=== PATIENT | female | born 1955 | race Caucasian/White ===

== ENCOUNTER → 2018-04-12 | Outpatient (CLI) | payer MEDICARE ==
--- NOTE | 2018-04-13 13:51 | CT ---
EXAMINATION TYPE: CT chest wo con DATE OF EXAM: 04/12/2018 COMPARISON: 11/05/2009 HISTORY: cough, SOB CT DLP: 814 mGycm. Automated Exposure Control for Dose Reduction was Utilized. TECHNIQUE: CT scan of the thorax is performed without IV contrast. FINDINGS: LUNGS: Is minimal bibasilar subsegmental dependent atelectasis and lingular subsegmental atelectasis. The lungs are grossly clear, there is no concerning parenchymal mass or nodule identified. There i s no pleural effusion or pneumothorax seen. The tracheobronchial tree is patent. MEDIASTINUM: Lack of IV contrast is noted to limit evaluation for mediastinal and especially hilar ad enopathy. There are no definitive greater than 1 cm hilar or mediastinal lymph nodes. No cardiomega ly or pericardial effusion is seen. Mild three-vessel coronary calcifications are seen. Ascending tho racic aorta is within normal limits measuring 3.5 cm. Main pulmonary artery is upper limits of size a lthough nonenlarged. OTHER: Postsurgical changes are noted at the gastroesophageal junction. Liver is diffusely hypoattenu ated compatible with hepatic steatosis overall appearing mild in degree. Mild multilevel degenerative changes of the spine are noted. IMPRESSION: Lingular subsegmental atelectasis and other scattered areas of subsegmental atelectasis. No focal consolidation to suggest pneumonia. No pulmonary mass. No findings suggests interstitial juan carlos g disease.
== END ==
LOC: RADCTMAIN 16:38
PROVIDERS: ATTEND Internal Medicine Pulmonary Disease
DX: J98.11 Atelectasis (principal)
CPT/HCPCS: 71250

== ENCOUNTER → 2019-08-05 | Outpatient (CLI) | payer MEDICARE ==
--- NOTE | 2019-08-05 16:14 | XR ---
EXAMINATION TYPE: XR chest 2V DATE OF EXAM: 08/05/2019 COMPARISON: Prior chest x-ray 01/24/2014 HISTORY: Shortness of breath and chest pain, hypertension TECHNIQUE: Frontal and lateral views of the chest are obtained. FINDINGS: There is no focal air space opacity, pleural effusion, or pneumothorax seen. The cardiac silhouette size is within normal limits. There are prominent lung volumes which can be seen with TRANSONIC ENGINEER D. The osseous structures are intact. IMPRESSION: No acute cardiopulmonary process.
[2019-08-05 17:16] LABS: Basophils % (A) 0 %; Eosinophils # (A) 0.4 k/uL (0-0.7); Eosinophils % (A) 4 %; HCT 36.7 % (34.0-46.0); HGB 12.3 gm/dL (11.4-16.0); Lymphocytes # (A) 2.1 k/uL (1.0-4.8); Lymphocytes % (A) 22 %; MCH 29.2 pg (25.0-35.0); MCHC 33.5 g/dL (31.0-37.0); MCV 87.1 fL (80.0-100.0); Mean Platelet Volume 8.4; Monocytes # (A) 0.6 k/uL (0-1.0); Monocytes % (A) 6 %; Neutrophils # (A) 6.4 k/uL (1.3-7.7); Neutrophils % (A) 66 %; Platelet Count 281 k/uL (150-450); RBC 4.21 m/uL (3.80-5.40); RDW 13.6 % (11.5-15.5); WBC 9.6 k/uL (3.8-10.6)
[2019-08-05 23:40] LABS: African American GFR (CKD) 54.5 (60.0-200.0); Albumin 4.5 g/dL (3.80-4.90); Albumin/Globulin Ratio 2.05 (1.60-3.17); Anion Gap 11.8 mmol/L (4.00-12.00); Calcium 9.7 mg/dL (8.7-10.3); Carbon Dioxide 31.2 mmol/L (21.6-31.8); Globulin 2.2 g/dL (1.6-3.3); Non-African American GFR(CKD) 47.1 (60.0-200.0); Potassium 3.6 mmol/L (3.5-5.5); Total Bilirubin 0.4 mg/dL (0.3-1.2); Total Protein 6.7 g/dL (6.2-8.2)
[2019-08-05 23:48] LABS: T4, Free (Free Thyroxine) 1.1 ng/dL (0.80-1.80)
== END | disposition home or self-care (01) ==
LOC: LABWHC1 15:19
PROVIDERS: ATTEND Internal Medicine Cardiovascular Disease
DX: I10 Essential (primary) hypertension (principal); R06.02 Shortness of breath; R07.9 Chest pain, unspecified
CPT/HCPCS: 36415; 71046; 80053; 83880; 84439; 84443; 85025

== ENCOUNTER → 2020-04-09 | Outpatient (CLI) | payer MEDICARE ==
[2020-04-09 15:28] LABS: Basophils # (A) 0.1 k/uL (0-0.2); Basophils % (A) 1 %; Eosinophils # (A) 0.3 k/uL (0-0.7); Eosinophils % (A) 4 %; HCT 38.3 % (34.0-46.0); HGB 13.3 gm/dL (11.4-16.0); Lymphocytes # (A) 1.8 k/uL (1.0-4.8); Lymphocytes % (A) 20 %; MCH 30.1 pg (25.0-35.0); MCHC 34.6 g/dL (31.0-37.0); MCV 86.9 fL (80.0-100.0); Mean Platelet Volume 7.5; Monocytes # (A) 0.4 k/uL (0-1.0); Monocytes % (A) 4 %; Neutrophils # (A) 6.4 k/uL (1.3-7.7); Neutrophils % (A) 70 %; Platelet Count 302 k/uL (150-450); RDW 13.6 % (11.5-15.5); WBC 9.1 k/uL (3.8-10.6)
[2020-04-10 01:49] LABS: C Reactive Protein 3.6 mg/dL (0.0-0.8); Uric Acid 9.7 mg/dL (2.9-7.7)
[2020-04-10 05:37] LABS: Erythrocyte Sedimentation Rate 64 mm/Hr (0-30)
== END | disposition home or self-care (01) ==
LOC: LABWHC1 14:44
PROVIDERS: ATTEND Podiatrist Foot & Ankle Surgery
DX: M10.9 Gout, unspecified (principal); M19.90 Unspecified osteoarthritis, unspecified site; B99.9 Unspecified infectious disease
CPT/HCPCS: 36415; 84550; 85025; 85652; 86038; 86039; 86140; 86431

== ENCOUNTER 2020-09-03 18:22 | Emergency (ER) | payer MEDICARE ==
[2020-09-03] MEDS ORDERED: SODIUM CHLORIDE 0.9% 500 ML 500 ML IV STA (18:52)
[2020-09-03] MEDS ORDERED: ALBUTEROL HFA INHALER INHALATION STA (18:52)
[2020-09-03] MEDS ORDERED: ACETAMINOPHEN TAB 325 MG TAB PO STA (19:05)
--- NOTE | 2020-09-03 19:05 | XR ---
EXAMINATION TYPE: XR chest 2V DATE OF EXAM: 09/03/2020 COMPARISON: 08/05/2019 INDICATION: TIPS and short of breath TECHNIQUE: Frontal and lateral views of the chest are obtained. FINDINGS: The heart size is normal. The pulmonary vasculature is normal. The lungs are clear. IMPRESSION: 1. No acute pulmonary process.
[2020-09-03 19:12] LABS: Basophils # (A) 0.1 k/uL (0-0.2); Basophils % (A) 1 %; Eosinophils # (A) 0.1 k/uL (0-0.7); Eosinophils % (A) 1 %; HCT 35.6 % (34.0-46.0); HGB 12.6 gm/dL (11.4-16.0); Lymphocytes # (A) 0.7 k/uL (1.0-4.8); Lymphocytes % (A) 10 %; MCH 30.7 pg (25.0-35.0); MCHC 35.5 g/dL (31.0-37.0); MCV 86.5 fL (80.0-100.0); Mean Platelet Volume 7.6; Monocytes # (A) 0.4 k/uL (0-1.0); Monocytes % (A) 6 %; Neutrophils # (A) 5.6 k/uL (1.3-7.7); Neutrophils % (A) 81 %; Platelet Count 226 k/uL (150-450); RBC 4.11 m/uL (3.80-5.40); RDW 13.1 % (11.5-15.5); WBC 6.9 k/uL (3.8-10.6)
[2020-09-03] MEDS: MAGNESIUM SULFATE-D5W PMX 1 GM in DEXTROSE/WATER 1 100ML.BAG IVPB SCH ×2 (19:13→20:20)
[2020-09-03 19:23] LABS: Calcium 9.3 mg/dL (8.4-10.2); Magnesium 1.5 mg/dL (1.6-2.3); Potassium 3.5 mmol/L (3.5-5.1); Total Bilirubin 0.7 mg/dL (0.2-1.3); Total Protein 6.7 g/dL (6.3-8.2)
[2020-09-03 19:26] LABS: Partial Thromboplastin Time 23.3 sec (22.0-30.0)
--- NOTE | 2020-09-03 20:14 | ED ---
SOB HPI - General Chief Complaint: Shortness of Breath Stated Complaint: ABBY Time Seen by Provider: 09/03/20 18:34 Source: EMS Mode of arrival: EMS Limitations: physical limitation - History of Present Illness Initial Comments: Patient presents with shortness of breath. She has a history of asthma. She has a cough. She has no nausea or vomiting. She has no chest pain or pressure. She has no weakness, lightheadedness or dizziness. She is unaware of sick contacts. She has not traveled anywhere. She has not taken any medication for her symptoms. She wasn't doing anything when she began to feel this way. - Related Data Home Medications Medication Instructions Recorded Confirmed Atenolol 50 mg PO BID 11/03/13 05/17/17 Montelukast [Singulair] 10 mg PO HS 11/03/13 05/17/17 Chlorthalidone [Hygroton] 25 mg PO BID 04/06/15 05/17/17 amLODIPine [Norvasc] 5 mg PO QAM 04/06/15 05/17/17 Cetirizine HCl [Zyrtec] 10 mg PO DAILY 05/17/17 05/17/17 Ibuprofen [Motrin] 200 mg PO Q6HR PRN 05/17/17 05/17/17 Previous Rx's Medication Instructions Recorded Cephalexin [Keflex] 500 mg PO Q6HR #40 cap 05/19/17 Allergies Allergy/AdvReac Type Severity Reaction Status Date / Time iodine Allergy Unknown Rash/Hives Verified 09/03/20 18:34 latex Allergy Unknown Unknown Verified 09/03/20 18:34 nickel [Nickel] Allergy Unknown Rash/Hives Verified 09/03/20 18:34 adhesive AdvReac Unknown Rash/Hives Verified 09/03/20 18:34 Review of Systems ROS Statement: Those systems with pertinent positive or pertinent negative responses have been documented in the HPI. ROS Other: All systems not noted in ROS Statement are negative. Past Medical History Past Medical History: Asthma, Eye Disorder, Hypertension, Osteoarthritis (OA), Pneumonia, Rheumatoid Arthritis (RA) Additional Past Medical History / Comment(s): Hiatal hernia, hx of narrow angle eye disorder(laser sx done), minimal glaucoma.past gout, ddd,seasonal allergies,past sleep apnea,"dry flaky skin". History of Any Multi-Drug Resistant Organisms: None Reported Past Surgical History: Breast Surgery, Heart Catheterization, Hysterectomy Additional Past Surgical History / Comment(s): Eye surgery for narrow angle eye disorder.BREAST REDUCTION,PARTIAL HYSTERECTOMY, HAMMER TOE. SINUS SURGERY.laser eye sx, lap meme fundoplication. Past Anesthesia/Blood Transfusion Reactions: Motion Sickness Additional Past Anesthesia/Blood Transfusion Reaction / Comment(s): Claustrophobia. Past Psychological History: ADD/ADHD, Anxiety, Depression Smoking Status: Former smoker Past Alcohol Use History: None Reported Past Drug Use History: None Reported - Past Family History Mother Family Medical History: Unable to Obtain Additional Family Medical History / Comment(s): Adopted. General Exam Limitations: physical limitation General appearance: alert, in no apparent distress Head exam: Present: atraumatic, normocephalic, normal inspection Eye exam: Present: normal appearance, PERRL, EOMI. Absent: scleral icterus, conjunctival injection, periorbital swelling ENT exam: Present: normal exam, mucous membranes moist Neck exam: Present: normal inspection. Absent: tenderness, meningismus, l ymphadenopathy Respiratory exam: Present: wheezes. Absent: respiratory distress, rales, rhonchi, stridor Cardiovascular Exam: Present: regular rate, normal rhythm, normal heart sounds. Absent: systolic murmur, diastolic murmur, rubs, gallop, clicks GI/Abdominal exam: Present: soft, normal bowel sounds. Absent: distended, tenderness, guarding, rebound, rigid Extremities exam: Present: normal inspection, full ROM, normal capillary refill. Absent: tenderness, pedal edema, joint swelling, calf tenderness Back exam: Present: normal inspection Neurological exam: Present: alert, oriented X3, CN II-XII intact Psychiatric exam: Present: normal affect, normal mood Skin exam: Present: warm, dry, intact, normal color. Absent: rash Course Vital Signs 09/03/20 18:31 Temperature 102 F H Pulse Rate 80 Respiratory 22 Rate Blood Pressure 140/81 O2 Sat by Pulse 96 Oximetry Medical Decision Making - Medical Decision Making Patient presents with shortness of breath. She has asthma. She was given steroids prior to arrival. She is given breathing treatment. She is given IV magnesium. A Covid test is positive. She is treated with IV medication for this. Patient is feeling better and is stable for discharge. - Lab Data Result diagrams: 09/03/20 18:54 09/03/20 18:54 Lab Results 09/03/20 09/03/20 09/03/20 Range/Units 18:50 18:54 18:54 WBC 6.9 (3.8-10.6) k/uL RBC 4.11 (3.80-5.40) m/uL Hgb 12.6 (11.4-16.0) gm/dL Hct 35.6 (34.0-46.0) % MCV 86.5 (80.0-100.0) fL MCH 30.7 (25.0-35.0) pg MCHC 35.5 (31.0-37.0) g/dL RDW 13.1 (11.5-15.5) % Plt Count 226 (150-450) k/uL MPV 7.6 Neutrophils % 81 % Lymphocytes % 10 % Monocytes % 6 % Eosinophils % 1 % Basophils % 1 % Neutrophils # 5.6 (1.3-7.7) k/uL Lymphocytes # 0.7 L (1.0-4.8) k/uL Monocytes # 0.4 (0-1.0) k/uL Eosinophils # 0.1 (0-0.7) k/uL Basophils # 0.1 (0-0.2) k/uL PT 11.0 (9.0-12.0) sec INR 1.0 (<1.2) APTT 23.3 (22.0-30.0) sec Sodium (137-145) mmol/L Potassium (3.5-5.1) mmol/L Chloride (98-107) mmol/L Carbon Dioxide (22-30) mmol/L Anion Gap mmol/L BUN (7-17) mg/dL Creatinine (0.52-1.04) mg/dL Est GFR (CKD-EPI)AfAm (>60 ml/min/1.73 sqM) Est GFR (CKD-EPI)NonAf (>60 ml/min/1.73 sqM) Glucose (74-99) mg/dL Calcium (8.4-10.2) mg/dL Magnesium (1.6-2.3) mg/dL Total Bilirubin (0.2-1.3) mg/dL AST (14-36) U/L ALT (4-34) U/L Alkaline Phosphatase (38-126) U/L Troponin I (0.000-0.034) ng/mL NT-Pro-B Natriuret Pep pg/mL Total Protein (6.3-8.2) g/dL Albumin (3.5-5.0) g/dL Coronavirus (PCR) Detected A (Not Detectd) Influenza Type A RNA (Not Detectd) Influenza Type B (PCR) (Not Detectd) 09/03/20 09/03/20 09/03/20 Range/Units 18:54 18:54 18:54 WBC (3.8-10.6) k/uL RBC (3.80-5.40) m/uL Hgb (11.4-16.0) gm/dL Hct (34.0-46.0) % MCV (80.0-100.0) fL MCH (25.0-35.0) pg MCHC (31.0-37.0) g/dL RDW (11.5-15.5) % Plt Count (150-450) k/uL MPV Neutrophils % % Lymphocytes % % Monocytes % % Eosinophils % % Basophils % % Neutrophils # (1.3-7.7) k/uL Lymphocytes # (1.0-4.8) k/uL Monocytes # (0-1.0) k/uL Eosinophils # (0-0.7) k/uL Basophils # (0-0.2) k/uL PT (9.0-12.0) sec INR (<1.2) APTT (22.0-30.0) sec Sodium 134 L (137-145) mmol/L Potassium 3.5 (3.5-5.1) mmol/L Chloride 95 L (98-107) mmol/L Carbon Dioxide 28 (22-30) mmol/L Anion Gap 11 mmol/L BUN 15 (7-17) mg/dL Creatinine 1.10 H (0.52-1.04) mg/dL Est GFR (CKD-EPI)AfAm 60 (>60 ml/min/1.73 sqM) Est GFR (CKD-EPI)NonAf 52 (>60 ml/min/1.73 sqM) Glucose 134 H (74-99) mg/dL Calcium 9.3 (8.4-10.2) mg/dL Magnesium 1.5 L (1.6-2.3) mg/dL Total Bilirubin 0.7 (0.2-1.3) mg/dL AST 213 H (14-36) U/L ALT 98 H (4-34) U/L Alkaline Phosphatase 113 (38-126) U/L Troponin I <0.012 (0.000-0.034) ng/mL NT-Pro-B Natriuret Pep 397 pg/mL Total Protein 6.7 (6.3-8.2) g/dL Albumin 4.0 (3.5-5.0) g/dL Coronavirus (PCR) (Not Detectd) Influenza Type A RNA (Not Detectd) Influenza Type B (PCR) (Not Detectd) 09/03/20 Range/Units 19:18 WBC (3.8-10.6) k/uL RBC (3.80-5.40) m/uL Hgb (11.4-16.0) gm/dL Hct (34.0-46.0) % MCV (80.0-100.0) fL MCH (25.0-35.0) pg MCHC (31.0-37.0) g/dL RDW (11.5-15.5) % Plt Count (150-450) k/uL MPV Neutrophils % % Lymphocytes % % Monocytes % % Eosinophils % % Basophils % % Neutrophils # (1.3-7.7) k/uL Lymphocytes # (1.0-4.8) k/uL Monocytes # (0-1.0) k/uL Eosinophils # (0-0.7) k/uL Basophils # (0-0.2) k/uL PT (9.0-12.0) sec INR (<1.2) APTT (22.0-30.0) sec Sodium (137-145) mmol/L Potassium (3.5-5.1) mmol/L Chloride (98-107) mmol/L Carbon Dioxide (22-30) mmol/L Anion Gap mmol/L BUN (7-17) mg/dL Creatinine (0.52-1.04) mg/dL Est GFR (CKD-EPI)AfAm (>60 ml/min/1.73 sqM) Est GFR (CKD-EPI)NonAf (>60 ml/min/1.73 sqM) Glucose (74-99) mg/dL Calcium (8.4-10.2) mg/dL Magnesium (1.6-2.3) mg/dL Total Bilirubin (0.2-1.3) mg/dL AST (14-36) U/L ALT (4-34) U/L Alkaline Phosphatase (38-126) U/L Troponin I (0.000-0.034) ng/mL NT-Pro-B Natriuret Pep pg/mL Total Protein (6.3-8.2) g/dL Albumin (3.5-5.0) g/dL Coronavirus (PCR) (Not Detectd) Influenza Type A RNA Not Detected (Not Detectd) Influenza Type B (PCR) Not Detected (Not Detectd) 09/03/20 20:12 Twelve-lead EKG shows ventricular rate 81 bpm, normal NC interval, no ST elevation or depression, no change from prior EKG, interpreted by me as normal sinus rhythm. Disposition Clinical Impression: COVID-19 Disposition: HOME SELF-CARE Condition: Good Instructions (If sedation given, give patient instructions): Coronavirus Dis ease 2019 (COVID-19) Is patient prescribed a controlled substance at d/c from ED?: No Referrals: Renay Lopez MD [Primary Care Provider] - 1-2 days
[2020-09-03] MEDS ORDERED: BAMLANIVIMAB (EUA) 700 MG, ETESEVIMAB (EUA) 1,400 MG in SODIUM CHLORIDE 0.9% 50 ML IVPB ONE (21:00)
[2020-09-03] MEDS ORDERED: SODIUM CHLORIDE 0.9% 50 ML IVPB ONE (21:30)
[2020-09-03 22:52] VITALS: BP 126/65; PULSE 73; RESP 18; TEMP 99.1
== END 2020-09-03 22:45 | disposition home or self-care (01) ==
LOC: EC 18:22
DX: U07.1 COVID-19 (principal); J45.909 Unspecified asthma, uncomplicated; I10 Essential (primary) hypertension; M19.90 Unspecified osteoarthritis, unspecified site; M06.9 Rheumatoid arthritis, unspecified; F41.9 Anxiety disorder, unspecified; Z79.899 Other long term (current) drug therapy; Z91.048 Other nonmedicinal substance allergy status; Z91.040 Latex allergy status; Z87.891 Personal history of nicotine dependence
CPT/HCPCS: 36415; 94640; 93005; 83880; 80053; 83735; 84484; 85025; 85610; 85730; 87502; 87635; 71046; 99285; 96365; 96367; 96366; J3475; Q0245

== ENCOUNTER → 2021-08-04 | Outpatient (CLI) | payer MEDICARE ==
--- NOTE | 2021-08-04 08:28 | XR ---
Right foot HISTORY: M84.371A 3 views the right foot Bone mineralization is reduced which could limit evaluation. Degenerative changes present at the meta tarsophalangeal joint of the first digit. There is some associated soft tissue swelling. Alignment is maintained. No evident fracture or dislocation. There is a plantar calcaneal spur. Small ossific den sity present at the talonavicular joint is well-corticated and not felt likely to be acute. Some marixa deling present at the metatarsophalangeal joint of the second digit, joint space loss and marginal sp urring. IMPRESSION: Low bone mineralization. Degenerative change and soft tissue swelling.
--- NOTE | 2021-08-04 13:33 | NM ---
EXAMINATION TYPE: NM bone 3 phase DATE OF EXAM: 08/04/2021 COMPARISON: Plain film 08/04/2021 HISTORY: M 84.371A Triple phase bone scintigraphy was performed following the injection of 22.9 mCi Tc 99m MDP. Immedia te images and 4 hours post injection images acquired. FINDINGS: Limited scanning performed over the feet. There is increased blood flow and blood pool uptake noted along the region of the right ankle at the level of the talus, delayed imaging is also present at this level as well as at the level the metatar sophalangeal joints bilaterally, tarsometatarsal joint of the first digit of the left foot. IMPRESSION: Findings could possibly represent infection however consider dedicated imaging of the right ankle, La ne film, CT MRI, osteonecrosis or insufficiency fracture within the differential.
== END | disposition home or self-care (01) ==
LOC: RADNMMAIN 07:33
PROVIDERS: ATTEND Podiatrist Foot & Ankle Surgery
DX: M19.071 Primary osteoarthritis, right ankle and foot (principal); M79.89 Other specified soft tissue disorders
CPT/HCPCS: 73630; 78315; A9503

== ENCOUNTER → 2021-08-08 | Outpatient (CLI) | payer MEDICARE ==
[2021-08-08 22:47] LABS: ALT 31 U/L (8-44); AST 27 U/L (13-35); African American GFR (CKD) 39.5 (60.0-200.0); Albumin 4.9 g/dL (3.8-4.9); Albumin/Globulin Ratio 1.97 (1.60-3.17); Alkaline Phosphatase 132 U/L (41-126); Blood Urea Nitrogen 26.2 mg/dL (9.0-27.0); Calcium 10.4 mg/dL (8.7-10.3); Carbon Dioxide 23.1 mmol/L (20.0-27.5); Chloride 101 mmol/L (96-109); Globulin 2.5 g/dL (1.6-3.3); Glucose 123 mg/dL (70-110); Non-African American GFR(CKD) 34.1 (60.0-200.0); Potassium 4.7 mmol/L (3.5-5.5); Sodium 140 mmol/L (135-145); Total Protein 7.4 g/dL (6.2-8.2); Uric Acid 7.8 mg/dL (2.9-7.7)
[2021-08-09 00:16] LABS: Rheumatoid Factor, Qnt <10 IU/mL (0-15)
[2021-08-09 01:18] LABS: HCT 42.8 % (37.2-46.3); HGB 13.7 g/dL (12.0-15.0); MCH 28.8 pg (27.0-32.0); MCV 90.1 fL (80.0-97.0); Mean Platelet Volume 11.3 fL (9.5-12.2); NRBC Per 100 WBC 0 /100 WBCS (0.0-0.0); Platelet Count 302 X 10*3/uL (140-440); RBC 4.75 X 10*6/uL (4.10-5.20); RDW 13.6 % (11.5-14.5); WBC 9.77 X 10*3/uL (4.50-10.00)
[2021-08-09 03:42] LABS: Erythrocyte Sedimentation Rate 48 mm/Hr (0-30)
== END | disposition home or self-care (01) ==
LOC: LABWHC1 15:00
PROVIDERS: ATTEND Podiatrist Foot & Ankle Surgery
DX: I10 Essential (primary) hypertension (principal); L03.90 Cellulitis, unspecified; D64.9 Anemia, unspecified
CPT/HCPCS: 36415; 80053; 84550; 85027; 85652; 86038; 86140; 86431

== ENCOUNTER 2022-02-17 13:55 | Emergency (ER) | payer MEDICARE ==
[2022-02-17 14:58] VITALS: BP 133/78; PULSE 60; RESP 22; TEMP 97.6
[2022-02-17] MEDS ORDERED: HYDROcodone/APAP 5-325MG 1 EACH TAB PO STA (15:24)
--- NOTE | 2022-02-17 15:29 | ED ---
General Adult HPI - General Chief complaint: Extremity Injury, Lower Stated complaint: Fall-R ankle injury Time Seen by Provider: 02/17/22 14:58 Source: patient, EMS Mode of arrival: EMS Limitations: no limitations - History of Present Illness Initial comments: Dictation was produced using [employer] dictation software. please excuse any grammatical, word or spelling errors. Chief Complaint: 66-year-old female presents emergency Department with right ankle pain History of Present Illness: Patient is 58-year-old female she was walking to the bathroom earlier today. She states that she took a misstep and fell like maybe she had inverted her ankle. She states she felt a pop. Patient was able to get up. She called ambulance. She is brought to the emergency department. Her pain is sharp and throbbing to the right lateral ankle. The ROS documented in this emergency department record has been reviewed and confirmed by me. Those systems with pertinent positive or negative responses have been documented in the HPI. All other systems are other negative and/or noncontributory. PHYSICAL EXAM: General Impression: Alert and oriented x3, not in acute distress HEENT: Normocephalic atraumatic, extra-ocular movements intact, pupils equal and reactive to light bilaterally, mucous membranes moist. Cardiovascular: Heart regular rate and rhythm Chest: Able to complete full sentences, no retractions, no tachypnea Musculoskeletal: Pulses present and equal in all extremities, no peripheral edema Motor: no focal deficits noted Neurological: CN II-XII grossly intact, no focal motor or sensory deficits noted Skin: Intact with no visualized rashes Right ankle: Palpatory tenderness to the lateral malleolus, no midfoot tenderne ss, neurovascularly intact Psych: Normal affect and mood ED course: 66-year-old female presents emergency Department with right ankle injury. Signs upon arrival are within acceptable limits. Ankle x-ray shows no acute processes. Patient given analgesics started pack. Discharged. Click or presentation consistent with ankle sprain. - Related Data Home Medications Medication Instructions Recorded Confirmed Atenolol 50 mg PO BID 11/03/13 05/17/17 Montelukast [Singulair] 10 mg PO HS 11/03/13 05/17/17 Chlorthalidone [Hygroton] 25 mg PO BID 04/06/15 05/17/17 amLODIPine [Norvasc] 5 mg PO QAM 04/06/15 05/17/17 Cetirizine HCl [Zyrtec] 10 mg PO DAILY 05/17/17 05/17/17 Ibuprofen [Motrin] 200 mg PO Q6HR PRN 05/17/17 05/17/17 Previous Rx's Medication Instructions Recorded Cephalexin [Keflex] 500 mg PO Q6HR #40 cap 05/19/17 Allergies Allergy/AdvReac Type Severity Reaction Status Date / Time iodine Allergy Unknown Rash/Hives Verified 02/17/22 14:58 latex Allergy Unknown Unknown Verified 02/17/22 14:58 nickel [Nickel] Allergy Unknown Rash/Hives Verified 02/17/22 14:58 adhesive AdvReac Unknown Rash/Hives Verified 02/17/22 14:58 Review of Systems ROS Statement: Those systems with pertinent positive or pertinent negative responses have been documented in the HPI. ROS Other: All systems not noted in ROS Statement are negative. Past Medical History Past Medical History: Asthma, Eye Disorder, Hypertension, Osteoarthritis (OA), Pneumonia, Rheumatoid Arthritis (RA) Additional Past Medical History / Comment(s): Hiatal hernia, hx of narrow angle eye disorder(laser sx done), minimal glaucoma.past gout, ddd,seasonal allergies,past sleep apnea,"dry flaky skin". History of Any Multi-Drug Resistant Organisms: None Reported Past Surgical History: Breast Surgery, Heart Catheterization, Hysterectomy Additional Past Surgical History / Comment(s): Eye surgery for narrow angle eye disorder.BREAST REDUCTION,PARTIAL HYSTERECTOMY, HAMMER TOE. SINUS SURGERY.laser eye sx, lap meme fundoplication. Past Anesthesia/Blood Transfusion Reactions: Motion Sickness Additional Past Anesthesia/Blood Transfusion Reaction / Comment(s): Claustrophobia. Past Psychological History: ADD/ADHD, Anxiety, Depression Smoking Status: Former smoker Past Alcohol Use History: None Reported Past Drug Use History: None Reported - Past Family History Mother Family Medical History: Unable to Obtain Additional Family Medical History / Comment(s): Adopted. General Exam Limitations: no limitations Course Vital Signs 02/17/22 14:48 Temperature 97.6 F Pulse Rate 60 Respiratory 22 Rate Blood Pressure 133/78 O2 Sat by Pulse 97 Oximetry Disposition Clinical Impression: Ankle sprain Disposition: HOME SELF-CARE Condition: Good Instructions (If sedation given, give patient instructions): Ankle Sprain (ED) Is patient prescribed a controlled substance at d/c from ED?: No Referrals: Renay Lopez MD [Primary Care Provider] - 1-2 days Time of Disposition: 16:47
--- NOTE | 2022-02-17 16:19 | XR ---
Right ankle HISTORY: Ankle pain, history of trauma 3 views the right ankle Bone mineralization is reduced. There is an overlying dressing. Soft tissue swelling is noted. Joint spaces and alignment are maintained. There is a plantar calcaneal spur. IMPRESSION: Soft tissue swelling. Osteopenia could limit sensitivity, follow-up as indicated.
[2022-02-17] MEDS ORDERED: ACET/COD 300 MG/30 MG STARTER PACK 6 TAB BTL PO STA (16:45)
== END 2022-02-17 17:04 | disposition home or self-care (01) ==
LOC: EC 13:55
DX: S93.401A Sprain of unspecified ligament of right ankle, initial encounter (principal); J45.909 Unspecified asthma, uncomplicated; I10 Essential (primary) hypertension; M19.90 Unspecified osteoarthritis, unspecified site; Z87.891 Personal history of nicotine dependence; Z79.899 Other long term (current) drug therapy; Z91.041 Radiographic dye allergy status; Z91.040 Latex allergy status; Z91.048 Other nonmedicinal substance allergy status; W10.9XXA Fall (on) (from) unspecified stairs and steps, initial encounter; Y93.01 Activity, walking, marching and hiking
CPT/HCPCS: 99283

== ENCOUNTER 2022-09-13 15:39 | Emergency (ER) | payer MEDICARE ==
--- NOTE | 2022-09-13 16:36 | ED ---
Abdominal Pain HPI - General Chief Complaint: Abdominal Pain Stated Complaint: Back Pain Time Seen by Provider: 09/13/22 16:31 Source: patient, RN notes reviewed Mode of arrival: ambulatory Limitations: no limitations - History of Present Illness Initial Comments: Patient is a 67-year-old female presents to the emergency department for back pain. Patient reports a sharp pain in her left lower back which began yesterday. She denies injury. There is no radiation. Pain worsened with standing and movement of the spine. No saddle anesthesia, leg weakness, loss of bowel or bladder function. Patient reports urinary frequency and foul order from her urine. She denies burning with urination and blood in the urine. She denies nausea and vomiting. Denies history of kidney infection and stone. - Related Data Home Medications Medication Instructions Recorded Confirmed Atenolol 50 mg PO BID 11/03/13 09/13/22 Montelukast [Singulair] 10 mg PO DAILY 11/03/13 09/13/22 Chlorthalidone [Hygroton] 25 mg PO DAILY 04/06/15 09/13/22 amLODIPine [Norvasc] 5 mg PO DAILY 04/06/15 09/13/22 Acetaminophen Tab [Tylenol Tab] 500 mg PO Q6HR PRN 07/06/22 09/13/22 Ascorbic Acid [Vitamin C] 1,000 mg PO DAILY 07/06/22 09/13/22 Budesonide [Pulmicort] 0.5 mg INHALATION RT-BID 07/06/22 09/13/22 Cholecalciferol [Vitamin D3 (25 50 mcg PO DAILY 07/06/22 09/13/22 Mcg = 1000 Iu)] Cyanocobalamin (Vitamin B-12) 1,000 mcg PO DAILY 07/06/22 09/13/22 [Vitamin B-12] Ibuprofen [Motrin] 800 mg PO Q8H PRN 07/06/22 09/13/22 Ipratropium-Albuterol Nebulize 3 ml INHALATION RT-QID 07/06/22 09/13/22 [Duoneb 0.5 mg-3 mg/3 ml Soln] Levothyroxine Sodium [Synthroid] 25 mcg PO DAILY 07/06/22 09/13/22 Magnesium 250 mg PO DAILY 07/06/22 09/13/22 [place]-3/Dha/Epa/Fish Oil [Fish Oil 1 cap PO DAILY 07/06/22 09/13/22 1,000 mg Softgel] Oxybutynin Chloride 5 mg PO BID 07/06/22 09/13/22 Potassium Citrate 99 mg PO DAILY 07/06/22 09/13/22 Prevagen 1 tab PO DAILY 07/06/22 09/13/22 Vitamin A 2,400 mcg PO DAILY 07/06/22 09/13/22 buPROPion SR [Wellbutrin SR] 100 mg PO DAILY 07/06/22 09/13/22 traZODone HCL [Desyrel] 100 mg PO HS 07/06/22 09/13/22 Febuxostat [Uloric] 40 mg PO DAILY 09/13/22 09/13/22 Previous Rx's Medication Instructions Recorded Cephalexin [Keflex] 500 mg PO Q12H #14 cap 09/13/22 Lidocaine 5% Patch [Lidoderm 5% 1 patch TOPICAL DAILY PRN #7 patch 09/13/22 Patch] Allergies Allergy/AdvReac Type Severity Reaction Status Date / Time iodine Allergy Unknown Rash/Hives Verified 09/13/22 17:50 latex Allergy Unknown Unknown Verified 09/13/22 17:50 nickel [Nickel] Allergy Unknown Rash/Hives Verified 09/13/22 17:50 adhesive AdvReac Unknown Rash/Hives Verified 09/13/22 17:50 Review of Systems ROS Statement: Those systems with pertinent positive or pertinent negative responses have been documented in the HPI. ROS Other: All systems not noted in ROS Statement are negative. Past Medical History Past Medical History: Asthma, Eye Disorder, Hypertension, Osteoarthritis (OA), Pneumonia, Rheumatoid Arthritis (RA) Additional Past Medical History / Comment(s): Hiatal hernia, hx of narrow angle eye disorder(laser sx done), minimal glaucoma.past gout, ddd,seasonal allergies ,past sleep apnea,"dry flaky skin". History of Any Multi-Drug Resistant Organisms: None Reported Past Surgical History: Breast Surgery, Heart Catheterization, Hysterectomy Additional Past Surgical History / Comment(s): Eye surgery for narrow angle eye disorder.BREAST REDUCTION,PARTIAL HYSTERECTOMY, HAMMER TOE. SINUS SURGERY.laser eye sx, lap meme fundoplication. Past Anesthesia/Blood Transfusion Reactions: Motion Sickness Additional Past Anesthesia/Blood Transfusion Reaction / Comment(s): Claustrophobia. Past Psychological History: ADD/ADHD, Anxiety, Depression Smoking Status: Former smoker Past Alcohol Use History: None Reported Past Drug Use History: None Reported - Past Family History Mother Family Medical History: Unable to Obtain Additional Family Medical History / Comment(s): Adopted. General Exam - General Exam Comments Initial Comments: Visual Physical Exam Vital signs reviewed General: Well-appearing, nontoxic, no acute distress. Head: Normocephalic, atraumatic Eyes: PERRLA, EOMI ENT: Airway patent Chest: Nonlabored breathing Skin: No visual rash, normal skin tone Neuro: Alert and oriented 3 Musculoskeletal: No gross abnormalities Limitations: no limitations General appearance: alert, in no apparent distress Head exam: Present: atraumatic, normocephalic, normal inspection Eye exam: Present: normal appearance, PERRL, EOMI. Absent: scleral icterus, conjunctival injection, periorbital swelling Respiratory exam: Present: normal lung sounds bilaterally. Absent: respiratory distress, wheezes, rales, rhonchi, stridor Cardiovascular Exam: Present: regular rate, normal rhythm, normal heart sounds. Absent: systolic murmur, diastolic murmur, rubs, gallop, clicks GI/Abdominal exam: Present: soft, normal bowel sounds. Absent: distended, tenderness, guarding, rebound, rigid Back exam: Present: normal inspection, full ROM, paraspinal tenderness (left lumbar) Neurological exam: Present: alert, oriented X3, CN II-XII intact Expanded Speech: Present: fluid speech Sensory exam: Upper Extremity Light Touch: Normal, Lower Extremity Light Touch: Normal Motor strength exam: RUE: 5, LUE: 5, RLE: 5, LLE: 5 Course Vital Signs 09/13/22 09/13/22 15:43 18:48 Temperature 98.3 F 98.0 F Pulse Rate 70 67 Respiratory 20 18 Rate Blood Pressure 152/61 140/80 O2 Sat by Pulse 99 96 Oximetry Medical Decision Making - Medical Decision Making Was pt. sent in by a medical professional or institution (, PA, BEHAVIORAL PSYCHOLOGIST, urgent care, hospital, or correction...) When possible be specific @ -No Did you speak to anyone other than the patient for history (EMS, parent, family, police, friend...)? What history was obtained from this source @ -No Did you review nursing and triage notes (agree or disagree)? Why? @ -I reviewed and agree with nursing and triage notes Were old charts reviewed (outside hosp., previous admission, EMS record, old EKG, old radiological studies, urgent care reports/EKG's, correction records)? Report findings @ -No old charts were reviewed Differential Diagnosis (chest pain, altered mental status, abdominal pain women, abdominal pain men, vaginal bleeding, weakness, fever, dyspnea, syncope, headache, dizziness, GI bleed, back pain, seizure, CVA, palpatations, mental health)? @ -Differential Back Pain: Strain, zoster, cauda equina syndrome, epidural abscess, vertebral osteomyelitis, discitis, fracture, subluxation, disc herniation, DJD, spinal stenosis, dissection, AAA, pancreatitis, peptic ulcer disease, pyelonephritis, kidney stone, this is not meant to be an all-inclusive list. EKG interpreted by me (3pts min.). @ -As above X-rays interpreted by me (1pt min.). @ -None done CT interpreted by me (1pt min.). @ -Yes, CT of the abdomen and pelvis without contrast shows no evidence of obstructive uropathy or renal calculus. There is multilevel disc bulging to the spine. Lumbar spine CT shows a T11 vertebral body fracture that likely older. There is multilevel mild to moderate spinal canal stenosis. U/S interpreted by me (1pt. min.). @ -None done What testing was considered but not performed or refused? (CT, X-rays, U/S, labs)? Why? @ -None What meds were considered but not given or refused? Why? @ -None Did you discuss the management of the patient with other professionals (professionals i.e. , PA, BEHAVIORAL PSYCHOLOGIST, lab, RT, psych nurse, social science professor, nut dehydrator operator, teacher, protection officer, classification case manager)? Give summary @ -No Was smoking cessation discussed for >3mins.? @ -No Was critical care preformed (if so, how long)? @ -No Were there social determinants of health that impacted care today? How? (Homelessness, low income, unemployed, alcoholism, drug addiction, transportation, low edu. Level, literacy, decrease access to med. care, fci, rehab)? @ -No Was there de-escalation of care discussed even if they declined (Discuss DNR or withdrawal of care, Hospice)? DNR status @ -No What co-morbidities impacted this encounter? (DM, HTN, Smoking, COPD, CAD, Cancer, CVA, ARF, Chemo, Hep., AIDS, mental health diagnosis, sleep apnea, morbid obesity)? @ -None Was patient admitted / discharged? Hospital course, mention meds given and route, prescriptions, significant lab abnormalities, going to OR and other pertinent info. @ -Patient presenting for back pain. The pain is reproducible. No neurological deficit or weakness. Laboratory studies obtained. There is mild leukocytosis of 11.3. Kidney function is consistent with previous visits, crea tinine at 1.41, BUN of 19. Urinalysis is contaminated by squamous cells but does have large leukocyte esterase and rare bacteria reflecting possible infection. CT of the abdomen and pelvis shows no evidence of obstructive uropathy or renal calculus. There is multilevel disc bulging to the spine. Due to significant pain consistent with suspected MSK etiology I did obtain a lumbar spine CT which shows a T11 vertebral body fracture of indeterminate age and mild to moderate spinal canal stenosis. Patient does not have midline tenderness. Pain controlled. Results discussed with patient. Patient has never been evaluated by a health information specialist and will be referred today. Given leukocytosis with urinary symptoms and urinalysis concerning for infection patient will also be treated with Keflex for possible UTI. We discussed return parameters patient in stable medical condition for discharge. Undiagnosed new problem with uncertain prognosis? @ -No Drug Therapy requiring intensive monitoring for toxicity (Heparin, Nitro, Insulin, Cardizem)? @ -No Were any procedures done? @ -No Diagnosis/symptom? @ -back pain Acute, or Chronic, or Acute on Chronic? @ -acute Uncomplicated (without systemic symptoms) or Complicated (systemic symptoms)? @ -uncomplicated Side effects of treatment? @ -No Exacerbation, Progression, or Severe Exacerbation? @ -No Poses a threat to life or bodily function? How? (Chest pain, [place], [place], pneumonia, PE, COPD, DKA, ARF, appy, cholecystitis, CVA, Diverticulitis, Homicidal, Suicidal, threat to staff... and all critical care pts) @ -No Dr. Vale is my attending - Lab Data Result diagrams: 09/13/22 17:00 09/13/22 17:00 Lab Results 09/13/22 09/13/2209/13/23 Range/Units 17:00 17:00 17:00 WBC 11.3 H (3.8-10.6) k/uL RBC 4.80 (3.80-5.40) m/uL Hgb 14.3 (11.4-16.0) gm/dL Hct 41.9 (34.0-46.0) % MCV 87.3 (80.0-100.0) fL MCH 29.9 (25.0-35.0) pg MCHC 34.3 (31.0-37.0) g/dL RDW 13.5 (11.5-15.5) % Plt Count 290 (150-450) k/uL MPV 7.2 Neutrophils % 70 % Lymphocytes % 20 % Monocytes % 5 % Eosinophils % 3 % Basophils % 0 % Neutrophils # 8.0 H (1.3-7.7) k/uL Lymphocytes # 2.2 (1.0-4.8) k/uL Monocytes # 0.6 (0-1.0) k/uL Eosinophils # 0.4 (0-0.7) k/uL Basophils # 0.0 (0-0.2) k/uL Sodium 138 (137-145) mmol/L Potassium 4.6 (3.5-5.1) mmol/L Chloride 97 L (98-107) mmol/L Carbon Dioxide 29 (22-30) mmol/L Anion Gap 12 mmol/L BUN 19 H (7-17) mg/dL Creatinine 1.41 H (0.52-1.04) mg/dL Est GFR (CKD-EPI)AfAm 44 (>60 ml/min/1.73 sqM) Est GFR (CKD-EPI)NonAf 38 (>60 ml/min/1.73 sqM) Glucose 115 H (74-99) mg/dL Plasma Lactic Acid Ramon (0.7-2.0) mmol/L Calcium 10.4 H (8.4-10.2) mg/dL Total Bilirubin 0.8 (0.2-1.3) mg/dL AST 26 (14-36) U/L ALT 19 (4-34) U/L Alkaline Phosphatase 95 (38-126) U/L Total Protein 7.9 (6.3-8.2) g/dL Albumin 4.8 (3.5-5.0) g/dL Urine Color Yellow Urine Appearance Turbid H (Clear) Urine pH 6.0 (5.0-8.0) Ur Specific Cobb 1.014 (1.001-1.035) Urine Protein Trace H (Negative) Urine Glucose (UA) Negative (Negative) Urine Ketones Negative (Negative) Urine Blood Negative (Negative) Urine Nitrite Negative (Negative) Urine Bilirubin Negative (Negative) Urine Urobilinogen <2.0 (<2.0) mg/dL Ur Leukocyte Esterase Large H (Negative) Urine WBC 10 H (0-5) /hpf Ur Squamous Epith Cells 29 H (0-4) /hpf Urine Bacteria Rare H (None) /hpf Hyaline Casts 5 H (0-2) /lpf Urine Mucus Rare H (None) /hpf 09/13/22 Range/Units 17:00 WBC (3.8-10.6) k/uL RBC (3.80-5.40) m/uL Hgb (11.4-16.0) gm/dL Hct (34.0-46.0) % MCV (80.0-100.0) fL MCH (25.0-35.0) pg MCHC (31.0-37.0) g/dL RDW (11.5-15.5) % Plt Count (150-450) k/uL MPV Neutrophils % % Lymphocytes % % Monocytes % % Eosinophils % % Basophils % % Neutrophils # (1.3-7.7) k/uL Lymphocytes # (1.0-4.8) k/uL Monocytes # (0-1.0) k/uL Eosinophils # (0-0.7) k/uL Basophils # (0-0.2) k/uL Sodium (137-145) mmol/L Potassium (3.5-5.1) mmol/L Chloride (98-107) mmol/L Carbon Dioxide (22-30) mmol/L Anion Gap mmol/L BUN (7-17) mg/dL Creatinine (0.52-1.04) mg/dL Est GFR (CKD-EPI)AfAm (>60 ml/min/1.73 sqM) Est GFR (CKD-EPI)NonAf (>60 ml/min/1.73 sqM) Glucose (74-99) mg/dL Plasma Lactic Acid Ramon 1.3 (0.7-2.0) mmol/L Calcium (8.4-10.2) mg/dL Total Bilirubin (0.2-1.3) mg/dL AST (14-36) U/L ALT (4-34) U/L Alkaline Phosphatase (38-126) U/L Total Protein (6.3-8.2) g/dL Albumin (3.5-5.0) g/dL Urine Color Urine Appearance (Clear) Urine pH (5.0-8.0) Ur Specific Cobb (1.001-1.035) Urine Protein (Negative) Urine Glucose (UA) (Negative) Urine Ketones (Negative) Urine Blood (Negative) Urine Nitrite (Negative) Urine Bilirubin (Negative) Urine Urobilinogen (<2.0) mg/dL Ur Leukocyte Esterase (Negative) Urine WBC (0-5) /hpf Ur Squamous Epith Cells (0-4) /hpf Urine Bacteria (None) /hpf Hyaline Casts (0-2) /lpf Urine Mucus (None) /hpf Disposition Clinical Impression: Back pain Disposition: HOME SELF-CARE Condition: Good Instructions (If sedation given, give patient instructions): Urinary Tract Infection in Women (ED), Lumbar Spinal Stenosis (ED) Additional Instructions: Take medication as directed. Do not take Tylenol and Tylenol 3 together. Follow-up with network specialist in 1-2 days. Return to the emergency department if you experience new, concerning, or worsening symptoms Prescriptions: Cephalexin [Keflex] 500 mg PO Q12H #14 cap Lidocaine 5% Patch [Lidoderm 5% Patch] 1 patch TOPICAL DAILY PRN #7 patch PRN Reason: Pain Is patient prescribed a controlled substance at d/c from ED?: No Referrals: Renay Lopez MD [Primary Care Provider] - 1-2 days Kannan Bourne MD [STAFF PHYSICIAN] - 1-2 days
--- NOTE | 2022-09-13 17:13 | CT ---
EXAMINATION TYPE: CT abdomen pelvis wo con CT DLP: 1304.4 mGycm, Automated exposure control for dose reduction was used. DATE OF EXAM: 09/13/2022 5:05 PM COMPARISON: CT abdomen pelvis most recent from 03/13/2013 CLINICAL INDICATION:Female, 67 years old with history of left back pain; left flank pain TECHNIQUE: Axial CT of the abdomen and pelvis. Sagittal and coronal reformats were created on a [employer] workstation. Contrast used: none Oral contrast used: with Oral Contrast FINDINGS: LOWER CHEST: Mitral valve annular calcifications. Lipomatous hypertrophy of interatrial septum. ABDOMEN LIVER: Unremarkable GALLBLADDER AND BILE DUCTS: Unremarkable. PANCREAS: Unremarkable. SPLEEN: Unremarkable. ADRENAL GLANDS: Unremarkable. KIDNEYS AND URETERS: No evidence of hydronephrosis or renal calculus. The ureters are unremarkable. PELVIS BLADDER: Unremarkable REPRODUCTIVE: Unremarkable. ABDOMEN & PELVIS STOMACH AND BOWEL: Small hiatal hernia. No evidence of bowel obstruction. Few scattered colonic diver ticula and no evidence for inflammation. PERITONEUM/RETROPERITONEUM: No evidence of pneumoperitoneum or free fluid. VASCULATURE: No evidence of aortic aneurysm. MUSCULOSKELETAL: No acute osseous abnormalities. Moderate disc degeneration changes are present throu ghout the thoracolumbar spine. There is compression deformity of T11. There is at least 50% height lo ss no significant retropulsion. Disc bulging at L4-L5 and other multiple levels throughout the lumbar spine. LYMPH NODES: No gross evidence for lymphadenopathy. SOFT TISSUE/ABDOMINAL WALL: Bilateral fat-containing inguinal hernias. IMPRESSION: 1. No evidence of obstructive uropathy or renal calculus. No finding to correlate patient's pain. No diverticulitis 2. Fat-containing inguinal hernias bilaterally. 3. Multilevel disc bulging throughout the spine.. Consider further evaluation with MRI as clinically warranted.
[2022-09-13] MEDS ORDERED: LIDOCAINE 5% PATCH TOPICAL STA (17:27)
[2022-09-13] MEDS ORDERED: HYDROmorphone 0.5 MG/0.5 ML SYRINGE IVP STA (17:28)
[2022-09-13 17:29] LABS: Basophils % (A) 0 %; Eosinophils # (A) 0.4 k/uL (0-0.7); Eosinophils % (A) 3 %; HCT 41.9 % (34.0-46.0); HGB 14.3 gm/dL (11.4-16.0); Lymphocytes # (A) 2.2 k/uL (1.0-4.8); Lymphocytes % (A) 20 %; MCH 29.9 pg (25.0-35.0); MCHC 34.3 g/dL (31.0-37.0); MCV 87.3 fL (80.0-100.0); Mean Platelet Volume 7.2; Monocytes # (A) 0.6 k/uL (0-1.0); Monocytes % (A) 5 %; Neutrophils % (A) 70 %; Platelet Count 290 k/uL (150-450); RDW 13.5 % (11.5-15.5); WBC 11.3 k/uL (3.8-10.6)
[2022-09-13 17:42] LABS: Appearance,Urine Turbid (Clear); Bacteria,Urine Rare /hpf; Bilirubin,Urine Negative (Negative); Blood,Urine Negative (Negative); Color,Urine Yellow; Glucose,Urine (UA) Negative (Negative); Hyaline Casts,Urine 5 /lpf (0-2); Ketones,Urine Negative (Negative); Leukocyte Esterase,Urine Large (Negative); Mucus,Urine Rare /hpf; Nitrite,Urine Negative (Negative); Protein,Urine Trace (Negative); Specific Gravity,Urine 1.014 (1.001-1.035); Squamous Epithelial Cell,Urine 29 /hpf (0-4); Urobilinogen,Urine <2.0 mg/dL (<2.0); WBC,Urine 10 /hpf (0-5)
[2022-09-13 17:50] LABS: Albumin 4.8 g/dL (3.5-5.0); Calcium 10.4 mg/dL (8.4-10.2); Potassium 4.6 mmol/L (3.5-5.1); Total Bilirubin 0.8 mg/dL (0.2-1.3); Total Protein 7.9 g/dL (6.3-8.2)
[2022-09-13] MEDS ORDERED: SODIUM CHLORIDE 0.9% 1,000 ML IV STA (18:08)
--- NOTE | 2022-09-13 18:22 | CT ---
EXAMINATION TYPE: CT lumbar spine wo con CT DLP: combined DLP 1304.4 mGycm, Automated exposure control for dose reduction was used. DATE OF EXAM: 09/13/2022 5:42 PM COMPARISON: CT abdomen pelvis 03/13/2013 and same day CLINICAL INDICATION:Female, 67 years old with history of pain; TECHNIQUE: Multiple axial images were obtained from the midportion of T11 through the sacroiliac karen nts. Soft tissue and bone windows in coronal and sagittal planes were obtained and reviewed. Contrast used: none. Oral contrast used: none. FINDINGS: Alignment: There are 5 lumbar type vertebral bodies within normal alignment. Bone: Multilevel degeneration changes as seen on same day CT abdomen pelvis. There is at least 50% he ight loss of the T11 vertebral body with out significant retropulsion. At the level facet joint arthr opathy is present. Throughout the lumbar spine there is disc bulging with at least moderate L4-L5, mi ld L1-L2 through L3-L4 and L5-S1 spinal canal stenosis. The neural foramen are patent throughout the spine. There may be mild bilateral neural foraminal stenosis. Vacuum disc phenomenon osteophytes and disc space narrowing are seen throughout the spine. IMPRESSION: 1. Age-indeterminate T11 vertebral body fracture likely older. This can be confirmed with MRI thorac ic spine. 2. Multilevel at least mild and moderate spinal canal stenosis.
[2022-09-13] MEDS ORDERED: ACET/COD 300 MG/30 MG STARTER PACK 6 TAB BTL PO STA (18:29)
[2022-09-13] MEDS ORDERED: CEPHALEXIN 500 MG CAP PO STA (18:29)
[2022-09-13 18:52] VITALS: BP 140/80; PULSE 67; RESP 18; TEMP 98
== END 2022-09-13 18:52 | disposition home or self-care (01) ==
LOC: EC 15:39
DX: K40.90 Unilateral inguinal hernia, without obstruction or gangrene, not specified as recurrent (principal); M48.061 Spinal stenosis, lumbar region without neurogenic claudication; J45.909 Unspecified asthma, uncomplicated; I10 Essential (primary) hypertension; M19.90 Unspecified osteoarthritis, unspecified site; F90.9 Attention-deficit hyperactivity disorder, unspecified type; F41.9 Anxiety disorder, unspecified; F32.A Depression, unspecified; Z87.891 Personal history of nicotine dependence; Z79.51 Long term (current) use of inhaled steroids; Z79.1 Long term (current) use of non-steroidal anti-inflammatories (NSAID); Z79.899 Other long term (current) drug therapy; Z91.041 Radiographic dye allergy status; Z91.040 Latex allergy status; Z91.09 Other allergy status, other than to drugs and biological substances; Z88.8 Allergy status to other drugs, medicaments and biological substances
CPT/HCPCS: 36415; 80053; 83605; 85025; 81001; 72131; 74176; 99284; 96374; 96361; J1170

== ENCOUNTER → 2022-10-14 | Outpatient (CLI) | payer MEDICARE ==
--- NOTE | 2022-10-15 07:46 | MR ---
EXAMINATION TYPE: MR tspine/lspine wo con DATE OF EXAM: 10/14/2022 COMPARISON: CT lumbar spine September 13, 2022 HISTORY: Compression fracture. Mid and low back pain that radiates down left leg. Wedge compression f racture of L3 vertebra. Spondylosis lumbar region. Disc degeneration lumbar region. Muscle spasm. Wed ge compression fracture of T11 and T12 vertebra. Severe lumbar stiffness. TECHNIQUE: Multiplanar, multisequence imaging of the thoracic and lumbar spine are performed without IV contrast. FINDINGS: T-SPINE: Spinal cord shows normal course, caliber, and signal as it courses the thoracic spine. There is moder ate to severe chronic compression type fracture involving the T11 vertebra with approximate 80-90% he ight loss at midportion. There is a large osseous hemangioma involving the T7 vertebra. Mild to moder ate height loss estimated near 30% at this level is seen. There is mild to moderate multilevel anteri or spurring centered mid thoracic spine. There is heterogeneous with Modic type II endplate changes a nterior T8-T9 level. There are small posterior disc herniation mildly effacing the anterior thecal sa c at T3-T4 level sagittal image 8 and T10-T11 and T11-T12 level sagittal image 9 Axial images show no additional significant disc herniation. Visualized thorax and upper abdomen show no significant abnormalities IMPRESSION: Confirmation of severe chronic compression type fracture at T11 level. There is mild chr onic compression type fracture of T7 vertebral body level. Multilevel degenerative changes are presen t as detailed above. L-SPINE: Sagittal images of the lumbar spine show diminished T1 and T2 signal with mild height loss involving anterior superior L3 vertebra. There is slight grade 1 anterolisthesis L2 on L3. There is multilevel disc desiccation. There is moderate to advanced disc space narrowing with heterogeneous Modic type II endplate changes at L5-S1 level. There is mild disc space narrowing with vacuum disc phenomenon at L 4-L5 level. The conus medullaris is normal in position and signal ending at mid L1 level. Axial images at T12-L1 level shows large central disc extrusion extending superiorly up to superior T 12 level sagittal image 10. Bilateral neural foramina are patent. Axial images at L1-L2 level shows mild to moderate broad based left paracentral disc protrusion mildl y effaces the anterior thecal sac. Patent bilateral neural foramina. Axial images at L2-L3 level shows moderate broad-based disc bulge effacing the anterior thecal sac an d mild facet arthropathy bilaterally. There is mild to moderate bilateral anterior inferior neural fo raminal narrowing seen. Axial images at L3-L4 level shows mild broad-based disc bulge minimally effaces the anterior thecal s ac and causing mild bilateral anterior inferior neural foraminal narrowing. Axial images at L4-L5 level shows [id number] broad disc bulge with right paracentral disc protr usion component effacing anterior thecal sac and causing mild right-sided neural foraminal narrowing. There is mild to moderate facet arthropathy bilaterally. Axial images at L5-S1 level shows mild facet arthropathy bilaterally. There is mild broad disc bulge. Spinal canal is preserved. There is moderate bilateral neural foraminal narrowing due to marginal sp urring. IMPRESSION: Multilevel degenerative change in the lumbar spine as detailed above. Mild chronic compre ssion type fracture at superior L3 level is noted.
== END | disposition home or self-care (01) ==
LOC: RADMRIMAIN 11:58
PROVIDERS: ATTEND Orthopaedic Surgery Orthopaedic Surgery of the Spine
DX: S22.080A Wedge compression fracture of T11-T12 vertebra, initial encounter for closed fracture (principal); S32.030A Wedge compression fracture of third lumbar vertebra, initial encounter for closed fracture; M47.816 Spondylosis without myelopathy or radiculopathy, lumbar region; M51.36 Other intervertebral disc degeneration, lumbar region
CPT/HCPCS: 72146; 72148

== ENCOUNTER → 2023-01-08 | Outpatient (CLI) | payer MEDICARE ==
[2023-01-09 09:48] LABS: DNA Double-Stranded Indetermin (Negative)
== END | disposition home or self-care (01) ==
LOC: LABWHC1 15:52
PROVIDERS: ATTEND Family Medicine
DX: M25.50 Pain in unspecified joint (principal); M54.50 Low back pain, unspecified; R76.8 Other specified abnormal immunological findings in serum
CPT/HCPCS: 36415; 84550; 85652; 86225

== ENCOUNTER → 2023-01-12 | Outpatient (CLI) | payer MEDICARE ==
--- NOTE | 2023-01-12 17:33 | CT ---
EXAMINATION TYPE: CT chest wo con DATE OF EXAM: 01/12/2023 COMPARISON: 07/06/2022 HISTORY: Bronchiectasis. CT DLP: 1212.8 mGycm, Automated exposure control for dose reduction was used. CONTRAST: None TECHNIQUE: Axial images were obtained at 1 mm thick sections at 10 mm intervals. This will limit po rtions of the examination which may not be visualized within the [id number]. Images were obtained in the prone and supine views. FINDINGS: Portion of the thyroid visualized is normal. There is a 0.4 cm nodule in the periphery of the left apex. Series 4 image 36. Small peripheral nodul e medially in the posterior medial right apex, series 4 image 43. There is punctate peripheral nodule in the anterior lateral right apex. Series 4 image 52. There is a 2.1 x 3.4 cm consolidation periphery of the right mid lung. Series 4 image 135. This is no nspecific and related to atelectasis pneumonia or underlying neoplasm. There are couple of additional punctate nodularities adjacent including a 0.6 cm nodule on series 4 image 134 and 0.4 cm nodule. Se alena 4 image 136. There is an additional 2.4 x 1.4 cm masslike area of posterior medial left lung base. Series 4 image 232. Additional small nodules are more superior and midline from this lesion. Some streak opacities in the lateral right mid lung, series 4 image 157. Consider atelectasis lung et iologies at this level. Some streak opacity may be along the major fissure near the lingula. Correlat e for atelectasis. No enlarged mediastinal or hilar adenopathy is evident. The ascending aorta diameter at the level o f the main pulmonary artery is 3.5 cm. The main pulmonary artery diameter at the bifurcation is 2.9 cm. Minimal coronary artery calcification is evident. There is nonunion of a anterior lateral right rib fracture, image 97 series 4. Significant dilatation of the bronchi is not identified in relation to the adjacent vessels. Some min imal prominence may be present which would be compatible with minimal bronchiectasis. Limited CT sections are obtained through the upper abdomen. Abdomen is essentially unremarkable. IMPRESSIONS: 1. 2 masslike irregular areas within the right lung with additional punctate irregular densities josse cent. Differential diagnosis should include neoplasm such as metastasis and pneumonia. Findings are n ew from comparison. 2. Additional streak opacities more likely related to atelectasis. 3. Couple of apical punctate nonspecific nodular densities. 4. Minimal changes for bronchiectasis bilateral lung bases.
== END | disposition home or self-care (01) ==
LOC: RADCTMAIN 11:55
PROVIDERS: ATTEND Family Medicine
DX: J47.9 Bronchiectasis, uncomplicated (principal); J98.4 Other disorders of lung; R91.8 Other nonspecific abnormal finding of lung field
CPT/HCPCS: 71250

== ENCOUNTER → 2023-01-23 | Outpatient (CLI) | payer MEDICARE ==
--- NOTE | 2023-01-24 10:09 | MM ---
Reason for Exam: Screening (asymptomatic). Last mammogram was performed 12 year(s) and 1 month(s) ago. Patient History: Menarche at age 9. First Full-Term at age 21. Hysterectomy at age 41. Postmenopausal. Risk Values: Rakel 5 year model risk: 1.7%. NCI Lifetime model risk: 5.2%. Prior Study Comparison: 02/19/2003 Bilateral Screening Mammogram, [facility]. 04/22/2008 Bilateral Screening Mammogram, [facility]. 12/16/2010 Bilateral Screening Mammogram, [facility]. Tissue Density: The breast tissue is almost entirely fat. Findings: Analyzed By CAD. There is no suspicious group of microcalcifications or new suspicious mass in either breast. Benign calcifications within the right breast. Overall Assessment: Benign, BI-RAD 2 Management: Screening Mammogram of both breasts in 1 year. A clinical breast exam by your physician is recommended on an annual basis and results should be correlated with mammographic findings. Note on Rakel scores and lifetime risk: 1. A Rakel score greater than 3% is considered moderate risk. If this is the case, consider specialist referral to assess eligibility for a risk reducing agent. If overall lifetime risk for the development of breast cancer is 20% or higher, the patient may qualify for future screening with alternating mammogram and breast MRI. Electronically signed and approved by: Albert Hoffmann D.O.
== END | disposition home or self-care (01) ==
LOC: RADMAMWWP 14:05
PROVIDERS: ATTEND Family Medicine
DX: Z12.31 Encounter for screening mammogram for malignant neoplasm of breast (principal); Z78.0 Asymptomatic menopausal state
CPT/HCPCS: 77063; 77067

== ENCOUNTER → 2023-04-05 | Outpatient (CLI) | payer MEDICARE ==
[2023-04-05 14:14] LABS: Partial Thromboplastin Time 27.1 sec (22.0-30.0); Prothrombin Time 10.6 sec (10.0-12.5)
[2023-04-05 21:51] LABS: Basophils # (A) 0.07 X 10*3/uL (0.00-0.10); Basophils % (A) 0.6 %; Eosinophils # (A) 0.36 X 10*3/uL (0.04-0.35); Eosinophils % (A) 3.1 %; HCT 41.7 % (37.2-46.3); HGB 13.7 g/dL (12.0-15.0); Lymphocytes # (A) 1.88 X 10*3/uL (0.90-5.00); Lymphocytes % (A) 16.3 %; MCH 29.3 pg (27.0-32.0); MCHC 32.9 g/dL (32.0-37.0); MCV 89.1 FL (80.0-97.0); Mean Platelet Volume 11.3 FL (9.5-12.2); Monocytes # (A) 0.63 X 10*3/uL (0.20-1.00); Monocytes % (A) 5.4 %; NRBC Per 100 WBC 0 X 10*3/uL (0.00-0.01); Neutrophils # (A) 8.58 X 10*3/uL (1.80-7.70); Neutrophils % (A) 74.3 %; Platelet Count 339 X 10*3/uL (140-440); RBC 4.68 X 10*6/uL (4.10-5.20); RDW 13.8 % (11.5-14.5); WBC 11.56 X 10*3/uL (4.50-10.00)
[2023-04-06 02:53] LABS: BUN/Creat Ratio 11.71 Ratio (12.00-20.00); Blood Urea Nitrogen 16.4 mg/dL (9.0-27.0); Calcium 10.3 mg/dL (8.7-10.3); Carbon Dioxide 24.5 mmol/L (21.6-31.8); Chloride 100 mmol/L (96-109); Glucose 112 mg/dL (70-110); Potassium 4.2 mmol/L (3.5-5.5); Sodium 139 mmol/L (135-145)
== END | disposition home or self-care (01) ==
LOC: LABPAT 12:22
PROVIDERS: ATTEND Orthopaedic Surgery Orthopaedic Surgery of the Spine
DX: Z01.812 Encounter for preprocedural laboratory examination (principal); S32.020A Wedge compression fracture of second lumbar vertebra, initial encounter for closed fracture; Y99.9 Unspecified external cause status
CPT/HCPCS: 80048; 85025; 85610; 85730; 86850; 86900; 86901; 87070

== ENCOUNTER → 2023-04-06 | Outpatient (CLI) | payer MEDICARE ==
[2023-04-07 04:23] LABS: Appearance,Urine Clear (Clear); Bilirubin,Urine Negative (Negative); Blood,Urine Negative (Negative); Color,Urine Yellow (Yellow); Ketones,Urine Negative (Negative); Nitrite,Urine Negative (Negative); PH, Urine 6.5; Specific Gravity,Urine 1.019 (1.001-1.030); Urobilinogen,Urine 0.2 E.U./DL
== END | disposition home or self-care (01) ==
LOC: LABPRL 13:59
PROVIDERS: ATTEND Orthopaedic Surgery Orthopaedic Surgery of the Spine
DX: Z01.812 Encounter for preprocedural laboratory examination (principal); M48.56XA Collapsed vertebra, not elsewhere classified, lumbar region, initial encounter for fracture
CPT/HCPCS: 81003

== ENCOUNTER → 2023-04-06 | Outpatient (CLI) | payer MEDICARE ==
--- NOTE | 2023-04-09 12:01 | PE ---
EXAMINATION TYPE: PET CT fusion skull to thigh DATE OF EXAM: 04/06/2023 COMPARISON: CT chest 01/12/2023 Prior PET/CT: None HISTORY: Solitary pulmonary nodule TECHNIQUE: Following the intravenous administration of 10.22 mCi of F-18 FDG, whole body images are performed from the skull base to the midthigh. Images are reviewed on the computer in the coronal, a xial, and sagittal planes. Reconstructed rotating images are created on independent workstation and reviewed on the computer. A localization and attenuation correction CT is performed in conjunction with the PET scan. DLP: 945.88 mGycm SCAN: Initial Blood glucose: 123 mg/dL Average Mediastinum SUV: 2.41 Average Liver SUV: 3.66 FINDINGS: NECK: No abnormal uptake. Some mild uptake within the vocal cord level appears to be related to phon ation. THORAX: There is mild uptake within the streak density in the lateral right lung. Image 110, SUV 3.09 . Uptake within the left lower lung field density has an SUV of 2.58, image 106. Small density within the medial right lung base, image 120, has an SUV of 1.93 likely is inflammatory . ABDOMEN: No abnormal uptake PELVIS: No abnormal uptake OSSEOUS STRUCTURES: There is some increased uptake within a costovertebral junction, image 124, SUV 5 .92. This could be related to degenerative change. Osseous metastasis not excluded. Additional suspic ious areas are not otherwise identified. LOCALIZATION CT: There is a small hiatal hernia present. COMPARISON: None IMPRESSION: 1. There is intermediate to elevated uptake within the bilateral lower lung field streak opacities. T hese are nonspecific (possible inflammatory) to mildly suggestive for neoplasm. Additional workup is recommended. If bronchoscopy cannot be performed, short-term follow-up in 3 months is recommended. 2. Additional nodular density within the medial azygoesophageal sulcus with intermediate uptake more suggestive for inflammatory process. 3. No distant suspicious focal areas of uptake otherwise evident.
== END | disposition home or self-care (01) ==
LOC: RADPETMAIN 13:33
PROVIDERS: ATTEND Family Medicine
DX: R91.8 Other nonspecific abnormal finding of lung field (principal); R94.2 Abnormal results of pulmonary function studies; J98.4 Other disorders of lung
CPT/HCPCS: 78815; A9552

== ENCOUNTER 2023-04-16 06:26 | Day surgery (SDC) | payer MEDICARE ==
[~2023-04-16 06:26] MED LIST: ceFAZolin 1,000 MG in SODIUM CHLORIDE 0.9% IRRIGATIO 1,000 ML IRRIGATION PRN
[2023-04-16] MEDS ORDERED: ONDANSETRON 4 MG/2 ML VIAL ONE (06:53)
[2023-04-16] MEDS ORDERED: HYDROmorphone 0.5 MG/0.5 ML SYRINGE IVP PRN ×2 (07:14→09:06)
[2023-04-16] MEDS ORDERED: DEXAMETHASONE SOD PHOSPHATE 4 MG/ML 1 ML VIAL IV ONE (07:14)
[2023-04-16] MEDS ORDERED: MIDAZOLAM 2 MG/2 ML VIAL IV PRN (07:14)
[2023-04-16] MEDS ORDERED: ONDANSETRON 4 MG/2 ML VIAL IVP ONE (07:14)
[2023-04-16] MEDS ORDERED: LACTATED RINGERS 1,000 ML IV SCH ×2 (07:14)
[2023-04-16] MEDS ORDERED: SUCCINYLCHOLINE CHLORIDE 200 MG/10 ML VIAL IV ONE (07:31)
[2023-04-16] MEDS ORDERED: ROCURONIUM 10 MG/ML (5 ML VIAL) IV ONE (07:31)
[2023-04-16] MEDS ORDERED: HYDROmorphone (PF) 1 MG/ML ONE (07:31)
[2023-04-16] MEDS ORDERED: LIDOCAINE 1% INJ 10MG/ML (20 ML MDV) ONE (07:31)
[2023-04-16] MEDS ORDERED: PROPOFOL 10 MG/ML 20 ML VIAL IV ONE (07:31)
[2023-04-16] MEDS ORDERED: GLYCOPYRROLATE 0.2 MG/ML 2 ML VIAL ONE (07:31)
[2023-04-16] MEDS ORDERED: fentaNYL (PF) 50 MCG/ML 2 ML AMP ONE (07:31)
[2023-04-16] MEDS ORDERED: MIDAZOLAM 2 MG/2 ML VIAL ONE (07:31)
[2023-04-16] MEDS ORDERED: NEOSTIGMINE 1 MG/ML 10 ML VIAL ONE (07:31)
[2023-04-16] MEDS ORDERED: IOPAMIDOL M200 10 ML VIAL MISCELLANE ONE ×2 (08:10)
[2023-04-16] MEDS ORDERED: LIDOCAINE 0.5%-EPI 1:200,000 50 ML VIAL SQ ONE (08:11)
[2023-04-16] MEDS ORDERED: HYDROcodone/APAP 5-325MG 1 EACH TAB PO PRN (09:06)
[2023-04-16] MEDS ORDERED: CYCLOBENZAPRINE 5 MG TAB PO PRN (09:06)
[2023-04-16] MEDS ORDERED: traMADol 50 MG TAB PO PRN ×2 (09:06→09:08)
[2023-04-16] MEDS ORDERED: BENZOCAINE/MENTHOL LOZENG 1 EACH LOZENGE MUCOUS MEM PRN (09:06)
[2023-04-16] MEDS ORDERED: ONDANSETRON 4 MG/2 ML VIAL IVP PRN (09:06)
[2023-04-16] MEDS ORDERED: HYDROmorphone 1 MG/ML 1 ML SYRINGE IVP PRN (09:06)
[2023-04-16] MEDS ORDERED: ACETAMINOPHEN TAB 500 MG TAB PO PRN ×2 (09:06→09:08)
[2023-04-16] MEDS ORDERED: SODIUM CHLORIDE 0.9% 1,000 ML IV SCH (09:15)
--- NOTE | 2023-04-16 09:17 | P.OP ---
Date of Procedure: 04/16/23 Preoperative Diagnosis: L2, L3 and L4 subacute osteoporotic compression fractures Severe low back pain without relief from conservative treatment Postoperative Diagnosis: Same Anesthesia: GETA Pathology: other (Biopsies from L2-L3 and L4 sent separately to pathology) Condition: stable Disposition: PACU Description of Procedure: BRIEF OPERATIVE NOTE Preoperative Diagnosis: L2, L3 and L4 subacute osteoporotic compression fractures Severe low back pain without relief from conservative treatment Postoperative Diagnosis: Same Procedure: Kyphoplasty L2-L3 and L4 Vertebral body biopsy L2-L3 and L4 sent separately Use of biplanar fluoroscopic guidance Surgeon: Dr. Wong Dye House Hand: Billy Yanez is present throughout the entire the case persistence during positioning, dissection, exposure, visualization, and all crucial elements of the case as well as closure. Anesthesia: General anesthesia Estimated blood loss: Less than 50 mL Specimen: Vertebral body biopsy sent to pathology in formalin Complications: None apparent Components implanted: Bone cement at L2-L3 and L4 bilaterally Disposition: To recovery room in good stable condition. OPERATIVE INDICATIONS The patient has been having issues in their back over the past several weeks. She had to do a lot of driving with her daughter at that started significant portion of her pain. She is found have multiple compression fractures first she was found have compression fracture at T11 and also at L3. We started treating these but she also developed further pain along her waistline and was found have new compression fractures at L2 and L4 as well. She is not having significant pain at her thoracolumbar junction but was having worsening pain at her lumbar spine. We felt that the pain was coming from the fractures at L2-L3 and L4. We try treating her with bracing and conservative measures but she is not having any benefit despite this.. The patient has been through conservative treatment. They attempted conservative care with bracing however they're not having any benefit despite brace use. They continue to have significant pain and debility due to their fracture. She is having significant debility due to her pain at her lower back. She felt her pain at her upper back was improving. The fractures at L2 and L4 were new compared to her prior films and there seemed to be delayed healing at L3. We discussed various treatment options including surgery, with kyphoplasty at multiple levels over the painful areas of L2-L3 and L4 and the patient wishes to proceed with surgery We discussed the risk, patient's alternatives and benefits of surgery including but not limited to, risk of bleeding risk of infection, risk of need for further surgery, risk of decreased, loss of motion, loss of function, cement extravasation, nerve damage, paralysis, heart attack, blindness and . OPERATIVE SUMMARY After discussing all the risks, patient alternatives and benefits at length, the patient elected to proceed with surgical intervention, signed informed consent, and presented for their procedure. The patient was seen and examined in the preoperative holding area and the surgical site was marked. The patient was given antibiotics and brought to the operating room. The patient was sedated and intubated by anesthesia in standard fashion. The patient was positioned on to the operating room table in a prone position on the appropriate well-padded and well molded bilateral chest rolls. We were careful to pad any bony prominences and pressure points. We were careful to maintain the patient's cervical spine and good neutral alignment and position throughout. We used 2 C-arm machines to establish biplanar fluoroscopic guidance in AP and lateral positions. We were able to localize the fractures appropriately. The patient was prepped and draped in a normal standard fashion. An appropriate timeout and keystone protocol performed. We were able to proceed with the surgery. The local wound area was infiltrated with local anesthetic. An incision was made over the lateral aspect of the pedicle over the appropriate levels with a small 2 mm stab incision first just on the left at L2-L3 and L4 and then bilaterally at these those levels. Intraoperative fluoroscopy was taken which showed a marker at the appropriate level at L2-L3 and L4 bilaterally. With the appropriate level positively confirmed, I was able to position a sharp trocar over the lateral aspect of the pedicle. As able to advance the trocar into the pedicle and into the posterior aspect of vertebral body being careful to avoid penetration cephalad caudad or medially. The trocar was placed appropriately into the posterior aspect of vertebral body at the appropriate levels bilaterally at L2-L3 and L4. This was confirmed with C-arm guidance. With the trocar intact I was then able to take a bone biopsy with a biopsy punch or a bony drill. The biopsy specimen was passed off to be sent to pathology in formalin. I was then able to place the kyphoplasty balloon within the vertebral body. The position was checked on C-arm. I was able to inflate the balloon under low pressure and visualization with C-arm. The balloon was well enclosed within the vertebral body. The cement was prepared. With the cement at appropriate worki ng condition the balloons were deflated and removed. I was able to place bony cement with trocar with the cement delivery device under low pressure. Initially there was still primarily on the left side of vertebral bodies him in with the bilaterality of the kyphoplasty's I was able to get good fill bilaterally throughout the vertebral bodies. It had good fill within the vertebral body. There is no evidence of any extravasation of the cement posteriorly toward the canal. There was some extravasation of cement into the disc space at L3 4 through this. Endplate from L4, but it appeared to be adequately contained. The cement was well contained at the appropriate levels. The cement was allowed to cure appropriately. The trochars removed and final images were taken on C-arm. This showed the cement at the appropriate levels. We were able to proceed with closure. The wound was cleaned and dried and dressed with the appropriate dressing. The drapes were broken down. The patient was gently rolled back onto their hospital bed being careful to maintain their cervical spine and good neutral alignment and position. They were woken up by anesthesia, extubated, and brought to the recovery room in good stable condition. The patient will be admitted to the hospital for observation and for appropriate postoperative care, medical management and monitoring. We will continue to foll ow them closely about the postoperative course.
[2023-04-16 09:32] VITALS: RESP 16; TEMP 96.9
--- NOTE | 2023-04-16 10:01 | XR ---
EXAMINATION TYPE: XR lumbar spine 2 or 3V DATE OF EXAM: 04/16/2023 CLINICAL HISTORY: KYPHOPLASTY 3 L L2 L3 L4 TECHNIQUE: Three views of the lumbar spine are submitted. COMPARISON: None. FINDINGS: Kyphoplasty changes noted extending from L2 through L4. IMPRESSION: As above
--- NOTE | 2023-04-16 10:09 | FL ---
Fluoroscopy History: DYPHOPLASTY 3L 2:16 fluoro, dap 1.20541 mGym2
[2023-04-16 11:07] VITALS: BP 104/67; PULSE 60
[2023-04-16] MEDS ORDERED: IPRATROPIUM-ALBUTEROL 3 ML NEB INHALATION SCH (12:00)
[2023-04-16] MEDS ORDERED: BUDESONIDE 0.5 MG/2 ML NEBU INHALATION SCH (20:00)
[2023-04-16] MEDS ORDERED: atenoloL 50 MG TAB PO SCH (21:00)
[2023-04-17] MEDS ORDERED: allopurinoL 100 MG TAB PO SCH (09:00)
[2023-04-17] MEDS ORDERED: CHLORTHALIDONE 25 MG TAB PO SCH (09:00)
[2023-04-17] MEDS ORDERED: amLODIPine 5 MG TAB PO SCH (09:00)
[2023-04-17] MEDS ORDERED: NON FORMULARY DRUG (Prevagen 1 TAB) PO SCH (09:00)
== END 2023-04-16 11:13 | disposition home or self-care (01) ==
LOC: OR 06:26
PROVIDERS: ATTEND Orthopaedic Surgery Orthopaedic Surgery of the Spine
DX: M80.08XA Age-related osteoporosis with current pathological fracture, vertebra(e), initial encounter for fracture (principal); M54.50 Low back pain, unspecified; I10 Essential (primary) hypertension; J45.909 Unspecified asthma, uncomplicated; F10.90 Alcohol use, unspecified, uncomplicated; Z90.710 Acquired absence of both cervix and uterus; Z98.890 Other specified postprocedural states; Z79.899 Other long term (current) drug therapy; Z91.040 Latex allergy status; Z91.048 Other nonmedicinal substance allergy status
CPT/HCPCS: 22514; 20220; 88307; 88311; 72100; C1713; J2250; J0330; J2710; J0690; J2405; J2001; J3010; J1170 ×2; J2704; Q9966

== ENCOUNTER → 2023-07-17 | Outpatient (CLI) | payer MEDICARE ==
--- NOTE | 2023-07-20 09:45 | CT ---
EXAMINATION TYPE: CT chest wo con CT DLP: 553.9 mGycm, Automated exposure control for dose reduction was used. DATE OF EXAM: 07/17/2023 2:28 PM COMPARISON: CT chest 01/12/2023 and before. PET/CT 04/06/2023. MR spine 10/14/2022. CLINICAL INDICATION:Female, 68 years old with history of R91.8 lung nodule; PHH, lung nodule TECHNIQUE: Multiple axial images were obtained through the chest. Sagittal and coronal reformats were created for review. Contrast used: mL of (None if empty) Oral contrast used: (None if empty) FINDINGS: Examination limited by lack of IV contrast. LUNGS/ PLEURA: Increased wedge-shaped right middle lobe opacity with volume loss and some residual ae rated lung anteriorly, consistent with near complete atelectasis of this lobe. Similar findings on th e left extending along the oblique fissure and lingula, are similar to the prior study. Previously se en consolidative irregular 3.4 x 2.1 cm nodular density in the lateral right lung, and a 2.4 x 1.4 cm nodular density in the posteromedial right lower lobe on the prior study appear significantly improv ed, with mild residual stranding in these areas. There are several small bilateral pulmonary nodules, largest on the order of 3-4 mm, scattered throug hout both lungs, greatest in the right upper lobe with some appearing loosely grouped; these appear g enerally similar to previous and their appearance suggests postinfectious/inflammatory changes more t lofton anything else. No definite acute infiltrate, pleural effusion, or pneumothorax. AIRWAY: Central airways appear patent. Tapering of the right middle lobe bronchi into the area of con solidation/atelectasis with no definite endobronchial lesion suggested. There is borderline mild bron chiectasis in the bilateral lower lobes. LOWER NECK: No significant findings. MEDIASTINUM: No gross evidence of adenopathy, in the limits of unenhanced exam. Small hiatal hernia. Postoperative changes near the GE junction. HEART: Heart size upper normal. Moderate coronary artery calcification and/or stents. Relatively heav y calcification of the mitral valve and less calcification of the aortic valve. No appreciable perica rdial effusion. VASCULATURE: Moderate atherosclerotic calcifications of the aorta and branches. Ascending aorta is 3 .6 CM, descending is 2.7 CM. Aorta is considered mildly fusiform ectatic in its ascending portion. Pulmonary trunk measures 3 CM. Pulmonary trunk is borderline enlarged; developing pulmonary hypertens ion is possible. SOFT TISSUES/LYMPH NODES: Unremarkable soft tissues. No axillary adenopathy. UPPER ABDOMEN: No significant findings. MUSCULOSKELETAL: Moderate degenerative disc disease changes throughout the visualized spine. There ar e multilevel thoracic compression deformities which are most pronounced at T11 and T7, these appear s imilar to previous MRI 10/14/2022. There is mild compression fracture with mild height loss along the superior endplate of L1 which appears new since that time. Post vertebroplasty changes are also seen at L2 and L3 which also appear new. If the spine is of concern, follow-up MRI may be considered. IMPRESSION: 1. Near complete atelectasis of the right middle lobe, new from prior. 2. Similar findings on the left extending along the oblique fissure and lingula, similar to the prio r study. 3. Previously seen consolidative and nodular opacities in the right lung appear significantly improv ed, with mild residual stranding in these areas. 4. Several small bilateral pulmonary nodules scattered throughout both lungs, greatest in the right upper lobe. These are favored to be postinfectious/inflammatory. A 6-12 month follow-up CT may be obt ained. 5. Thoracic spine findings appear similar versus prior MRI 10/14/2022. Mild compression fracture with mild height loss along the superior endplate of L1, post vertebroplasty changes at L2 and L3, appear new since that time.
== END | disposition home or self-care (01) ==
LOC: RADCTMAIN 13:55
PROVIDERS: ATTEND Internal Medicine Pulmonary Disease
DX: J98.11 Atelectasis (principal); R91.8 Other nonspecific abnormal finding of lung field; J45.50 Severe persistent asthma, uncomplicated; G47.33 Obstructive sleep apnea (adult) (pediatric); M48.54XA Collapsed vertebra, not elsewhere classified, thoracic region, initial encounter for fracture; Z98.890 Other specified postprocedural states
CPT/HCPCS: 71250

== ENCOUNTER → 2023-08-10 | Outpatient (CLI) | payer MEDICARE ==
--- NOTE | 2023-08-10 15:13 | CT ---
COMPARISON: Exam: CT Chest without contrast. Date: 08/10/2023. Comparison: 07/17/2023. PET/CT on 04/06/2023., Chest CT on 01/12/2023. History: Follow-up for abnormal finding of the lung gotti. Technique: CT examination of the chest was performed without contrast. Coronal and sagittal reformats were performed. CT dose lowering techniques were used, to include: automated exposure control, adjus tment for patient size, and/or use of iterative reconstruction. FINDINGS: Mediastinum and Dinorah: There is no axillary, mediastinal or hilar lymphadenopathy. Pleural and Pericardial spaces: There are no pleural or pericardial effusions. Upper Abdomen: The visualized upper abdomen is unremarkable. Cardiovascular: There is moderate vascular calcifications of the thoracic aorta without evidence of a neurysmal dilation. Coronary artery calcifications are seen. Lung Parenchyma and Airways: There are few scattered tiny pulmonary nodules which are unchanged. Ther e is some improved atelectasis involving the right middle lobe with improved aeration when compared t o the previous examination. Minimal atelectasis of the lingular segment of the left upper lobe is als o unchanged. There is no focal consolidation. Bones: Bones are diffusely demineralized. Scattered compression deformities appear unchanged with kyp hoplasty cement. IMPRESSION: 1. Slight improved aeration of the right middle lobe with still significant areas of atelectasis. 2. Small pulmonary nodules are unchanged. 3. Additional findings as above.
== END | disposition home or self-care (01) ==
LOC: RADCTMAIN 14:48
PROVIDERS: ATTEND Internal Medicine Pulmonary Disease
DX: R91.8 Other nonspecific abnormal finding of lung field (principal); G47.33 Obstructive sleep apnea (adult) (pediatric); J45.50 Severe persistent asthma, uncomplicated; M54.50 Low back pain, unspecified; I70.0 Atherosclerosis of aorta; I25.10 Atherosclerotic heart disease of native coronary artery without angina pectoris; J98.11 Atelectasis; M81.0 Age-related osteoporosis without current pathological fracture
CPT/HCPCS: 71250

== ENCOUNTER → 2024-06-26 | Outpatient (CLI) | payer MEDICARE ==
--- NOTE | 2024-06-26 14:15 | CT ---
EXAMINATION TYPE: CT chest wo con DATE OF EXAM: 06/26/2024 COMPARISON: 08/10/2023 CLINICAL INDICATION: Female, 69 years old with history of J98.19 PULMONARY COLLAPSE R91.8 ABN LUNG FI ND; PHH, henny TECHNIQUE: CT scan of the thorax is performed without IV contrast. CT DLP: [address] CTDI: mGy Automated exposure control for dose reduction was used. FINDINGS: The partially consolidative opacity in the right middle lobe has resolved in the interval. There is m ild persistent interstitial opacity in the lingula. There has been interval development of a cluster of small spiculated nodular densities in the left upper lobe the largest of which is approximately 14 mm. There are 2 new ill-defined density in the right lung including a 6.6 mm right upper lobe densit y and 15 mm subpleural parenchymal density in the right lung base medially. There has been interval d evelopment of some fine reticulation in the left lung base. There is no airspace consolidation. There is no pleural effusion or pneumothorax. There is a small to moderate hiatal hernia. The great vessels the chest are normal. There is no mediastinal, hilar or axillary adenopathy. Limited scanning through the upper abdomen reveals no gross abnormality. IMPRESSION: 1. Resolution of the right middle lobe infiltrate. 2. Interval development of multiple small scattered stellate densities in both lungs as described ab ove. The findings suggest the presence of interstitial scars. Follow-up CT thorax in 3 months is uday mmended to confirm stability. 3. [id number] hiatal hernia. 4. No mediastinal or hilar adenopathy. 5. No acute cardiopulmonary disease. [facility], , 06/26/2024 2:13 PM
== END | disposition home or self-care (01) ==
LOC: RADCTMAIN 13:15
PROVIDERS: ATTEND Internal Medicine Pulmonary Disease
DX: J98.19 Other pulmonary collapse (principal); R91.8 Other nonspecific abnormal finding of lung field; K44.9 Diaphragmatic hernia without obstruction or gangrene; J98.4 Other disorders of lung
CPT/HCPCS: 71250

== ENCOUNTER → 2024-12-01 | Outpatient (CLI) | payer MEDICARE ==
--- NOTE | 2024-12-01 16:54 | CT ---
EXAMINATION TYPE: CT chest wo con DATE OF EXAM: 12/01/2024 3:02 PM COMPARISON: 06/26/2024 CLINICAL INDICATION: Female, 69 years old with history of R91.8 ABNORMAL FINDING OF LUNG FIELD, COPD, SOB, and lung nodules TECHNIQUE: Axial images were obtained at 5 mm thick sections. Reconstructed images are reviewed on [employer] computer in the coronal plane. Contrast used: mL of , (none if empty) Oral contrast used: (none if empty) CT DLP: 572.2 mGycm, Automated exposure control for dose reduction was used. FINDINGS: Portion of the thyroid visualized is normal. There is a 0.6 cm stable nodule in the lateral right midlung. Image 20. Present previously. A previous density within the lingular region is not identified on the current examination. The previ ous density along the medial right posterior lung base has improved. No enlarged mediastinal or hilar adenopathy is evident. The ascending aorta diameter at the level o f the main pulmonary artery is 3.6 cm. The main pulmonary artery diameter at the bifurcation is 3.3 cm. Mild coronary artery calcifications present. Limited CT sections are obtained through the upper abdomen. There is a small hiatal hernia present. IMPRESSION: 1. No acute pulmonary process. 2. Stable or improving appearance of previously described lung densities. [facility], , 12/01/2024 4:51 PM
== END | disposition home or self-care (01) ==
LOC: RADCTMAIN 14:41
PROVIDERS: ATTEND Internal Medicine Pulmonary Disease
DX: J45.51 Severe persistent asthma with (acute) exacerbation (principal); R91.8 Other nonspecific abnormal finding of lung field; J44.89 Other specified chronic obstructive pulmonary disease; J98.4 Other disorders of lung
CPT/HCPCS: 71250